=== PATIENT | male | born 1950 | race Caucasian/White ===

== ENCOUNTER 2021-08-04 11:26 | Emergency (ER) | payer MEDICARE, MEDICAID ==
[~2021-08-04] VITALS: Ht 185.4 cm; Wt 108.9 kg
--- OUTSIDE RECORDS SUMMARY | 2021-08-04 11:28 | XMS ---
PreManage Notification: MARY WLILIS [employer] Legal Department Manager Events No recent Security Events currently on file [facility] There are no care providers on record at this time. Care Guidelines exist for the following facilities: [facility] ( 10/16/2019 ) [place].) [facility] NOTE: Visits indicate total known visits. ED/UCC VISIT TRACKING (12 MO.) 08/04/2021 11:26 [facility] [place] TYPE: Emergency COMPLAINT: - STROKE SYMPTOMS INPATIENT VISIT TRACKING (12 MO.) No inpatient visits to display in this time frame [email or web address]
[2021-08-04] MEDS ORDERED: TRAZODONE HCL100 MG PO (13:05)
[2021-08-04] MEDS ORDERED: LISINOPRIL20 MG PO (13:05)
[2021-08-04] MEDS ORDERED: JARDIANCE10 MG PO (13:05)
[2021-08-04] MEDS ORDERED: CLONAZEPAM1 MG PO (13:05)
--- NOTE | 2021-08-04 20:37 | EKG ---
[facility] [address] [facility] [place], [place] [address] Signed Normal sinus rhythm Normal ECG No previous ECGs available Confirmed by TERRI SO MD ([id number]) on 08/04/2021 8:36:45 PM Electronically Signed By: TERRI SO MD 08/04/212036 PATIENT NAME: MARY WILLIS Electrocardiogram DATE OF : 52 PHYSICIAN: TERRI SO MD REPORT #: [id number] REPORT IS CONFIDENTIAL AND NOT TO BE RELEASED WITHOUT AUTHORIZATION
== END 2021-08-04 14:14 | disposition home or self-care (01) ==
LOC: ED 11:26
DX: R56.9 Unspecified convulsions (principal); Z79.899 Other long term (current) drug therapy
CPT/HCPCS: 36415; 70450; 70496; 70498; 71045; 80053; 85025; 85610; 85730; 93005; 93010; 99285-25; Q9967

== ENCOUNTER 2023-11-05 07:17 | Emergency (ER) | payer MEDICARE, OTHER ==
[~2023-11-05] VITALS: Ht 185.4 cm; Wt 110.0 kg
[~2023-11-05 07:17] MED LIST: CLONAZEPAM1 MG PO; JARDIANCE10 MG PO; LISINOPRIL20 MG PO; TRAZODONE HCL100 MG PO
[2023-11-05] MEDS ORDERED: IBUPROFEN 600 MG TAB PO ONE (07:30)
[2023-11-05] MEDS ORDERED: CLONAZEPAM2 MG PO (07:30)
[2023-11-05] MEDS ORDERED: IBU600 MG PO (07:56)
[2023-11-05] MEDS ORDERED: LISINOPRIL20 MG PO (07:56)
[2023-11-05] MEDS ORDERED: VENTOLIN HFA18 GM INH (07:56)
[2023-11-05] MEDS ORDERED: CARISOPRODOL250 MG PO (07:56)
[2023-11-05 08:03] VITALS: BP 112/76
== END 2023-11-05 08:03 | disposition home or self-care (01) ==
LOC: ED 07:17
DX: S20.212A Contusion of left front wall of thorax, initial encounter (principal); W22.8XXA Striking against or struck by other objects, initial encounter; I10 Essential (primary) hypertension; F41.9 Anxiety disorder, unspecified; Z79.899 Other long term (current) drug therapy
CPT/HCPCS: 71101; 99283-25; A9270